=== PATIENT | female | born 1995 | race Caucasian/White ===

== ENCOUNTER → 2023-10-25 11:48 | Outpatient (CLI) | payer OTHER, MEDICAID, SELFPAY | PROVIDERS: PCP Physician Assistant Medical; Visit Provider Physician Assistant Medical | DX: N39.0 Urinary tract infection, site not specified (principal) | CPT/HCPCS: 87086 ==

== ENCOUNTER → 2023-11-24 16:39 | Outpatient (CLI) | payer OTHER, MEDICAID, SELFPAY | PROVIDERS: PCP Physician Assistant Medical; Visit Provider Family Medicine | DX: R39.89 Other symptoms and signs involving the genitourinary system (principal) | CPT/HCPCS: 81002; 87086 ==

== ENCOUNTER → 2024-07-24 11:38 | Outpatient (CLI) | payer OTHER, MEDICAID, SELFPAY ==
[2024-07-28 04:41] LABS: Atopobium vaginae Low - 0 Score (.); Bact Vaginosis-Assoc. bacteria Low - 0 Score (.); Candida albicans, NAA Positive (Negative); Candida glabrata Negative (Negative); Chlamydia trachomatis Negative (Negative); Megasphaera 1 Low - 0 Score (.); Neisseria gonorrhoeae Negative (Negative); Trichomoas vaginalis by NAA Negative (Negative)
== END ==
PROVIDERS: PCP Physician Assistant; Visit Provider Physician Assistant
DX: N89.8 Other specified noninflammatory disorders of vagina (principal)
CPT/HCPCS: 87480; 87491; 87510; 87591; 87798; 87801